=== PATIENT | female | born 1970 | race Caucasian/White ===

== ENCOUNTER 2017-11-11 10:42 | Emergency (ER) | payer MEDICAID ==
[2017-11-11] MEDS: ACETAMINOPHEN 325 MG TAB PO (11:24)
== END 2017-11-11 12:30 | disposition home or self-care (01) ==
LOC: FTE 10:42
DX: J02.9 Acute pharyngitis, unspecified (principal)
CPT/HCPCS: 87880; 99283

== ENCOUNTER 2019-03-15 09:35 | Emergency (ER) | payer MEDICAID | END 2019-03-15 10:31 | disposition home or self-care (01) | LOC: FTE 10:31 | DX: J06.9 Acute upper respiratory infection, unspecified (principal) | CPT/HCPCS: 99283; Z7502 ==